=== PATIENT | female | born 1990 | race Hispanic/Latino ===

== ENCOUNTER 2021-11-22 09:02 | Emergency (ER) | payer SELFPAY ==
[2021-11-22 10:37] LABS: #Eosinphils 0.1 10x3/uL (0.0-0.5); #Monocytes 0.7 10x3/uL (0.0-1.1); #Neutrophils 5.6 10x3/uL (1.5-8.4); %Basophils 0.1 % (0.0-2.0); %Eosinophils 1.3 % (0.0-6.0); %Lymphocytes 24.6 % (18.0-47.0); %Monocytes 7.8 % (0.0-10.0); %Neutrophils 65.5 % (40.0-75.0); Hemoglobin 13.9 g/dL (12.0-15.5); Mean Corpuscular HGB CONC 34.6 g/dL (32.0-36.0); Mean Corpuscular Hemoglobin 29.6 pg (27.0-33.0); Mean Corpuscular Volume 85.7 fl (81.6-98.3); Mean Platelet Volume 10.2 fl (7.4-10.4); Platelet Count 270 10x3/uL (150-450); RBC Distribution Width 12.3 % (11.5-14.5); Red Blood Cell (RBC) Count 4.69 10x6/uL (3.90-5.03); White Blood Cell (WBC) Count 8.5 10x3/uL (3.5-10.5)
[2021-11-22 10:44] LABS: BHCG - Serum Negative (NEGATIVE); Pregs Control Bar Appear? YES (CONTROL BAR)
[2021-11-22 10:45] LABS: Pregs Control Background? CLEAR/WHITE (CLR/WHITE)
[2021-11-22 10:52] LABS: ALT (SGPT) 75 U/L (8-55); AST (SGOT) 40 U/L (5-34); Albumin 4.1 g/dL (3.5-5.0); Alkaline Phosphatase 94 U/L (40-110); Anion Gap 12 mmol/L (10-20); BUN (Urea Nitrogen) 9 mg/dL (7.0-18.7); Bilirubin, Total 0.8 mg/dL (0.2-1.2); Calc. Creatinine Clearance 0 mL/min (70-130); Calcium 9.1 mg/dL (7.8-10.44); Carbon Dioxide 26 mmol/L (22-29); Chloride 105 mmol/L (98-107); Globulin 3.7 g/dL (2.4-3.5); Glucose 119 mg/dL (70-105); Lipase 12 U/L (8-78); Potassium 3.8 mmol/L (3.5-5.1); Protein, Total 7.8 g/dL (6.0-8.3); Sodium 139 mmol/L (136-145)
[2021-11-22] MEDS ORDERED: Ketorolac Tromethamine 30 MG/ML VIAL ONE (11:03)
[2021-11-22 11:04] LABS: Bilirubin Neg (Negative); Blood, Urine 25 (Negative); Clarity Cloudy (Clear); Glucose, Urine (Dipstick) Normal (Negative); Ketone, Urine Negative (Negative); Leukocyte 500 (Negative); Nitrite Negative (Negative); Protein, Urine (Dipstick) 30 mg/dl (Neg-Trace); Specific Gravity, Urine 1.015 (1.002-1.036); Urobilinogen Normal mg/dL (Less than 2)
[2021-11-22 11:11] LABS: Bacteria/HPF 1+ HPF (None Seen); WBC/HPF 21-50 HPF (0-3)
[2021-11-22] MEDS ORDERED: Cefepime 2 GM in Sodium Chloride 0.9% 100 ML IVPB SCH (12:00)
[2021-11-22] MEDS ORDERED: cefTRIAXone\\ROCEPHIN 2 GM VIAL ONE (12:04)
== END 2021-11-22 12:14 | disposition home or self-care (01) ==
LOC: CSHERS 09:02
DX: N10 Acute pyelonephritis (principal); I10 Essential (primary) hypertension
CPT/HCPCS: 74176; 80053; 81003; 81015; 83690; 84703; 85025; 87077; 87086; 96374; 96375; J0692; J0696; J1885; J3490

== ENCOUNTER 2023-02-25 20:49 | Emergency (ER) | payer OTHER, SELFPAY ==
[2023-02-25] MEDS ORDERED: Ketorolac Tromethamine 30 MG/ML VIAL ONE ×2 (21:42→21:43)
[2023-02-25] MEDS ORDERED: Amlodipine 5 MG TAB ONE (21:42)
[2023-02-25 22:25] LABS: Pregnancy Test - Urine (BHCG) Negative (Negative); Pregu Control Background? CLEAR/WHITE (CLR/WHITE); Pregu Control Bar Appear? YES (CONTROL BAR)
== END 2023-02-26 00:21 | disposition home or self-care (01) ==
LOC: CSHERS 20:49
DX: S33.5XXA Sprain of ligaments of lumbar spine, initial encounter (principal); S83.91XA Sprain of unspecified site of right knee, initial encounter; S63.501A Unspecified sprain of right wrist, initial encounter; S93.401A Sprain of unspecified ligament of right ankle, initial encounter; S09.90XA Unspecified injury of head, initial encounter; I10 Essential (primary) hypertension; W19.XXXA Unspecified fall, initial encounter
CPT/HCPCS: 72072; 72100; 81025; 96372; J1885

== ENCOUNTER 2023-05-05 12:51 | Emergency (ER) | payer OTHER ==
[2023-05-05] MEDS ORDERED: hydrALAZINE 20 MG/ML VIAL ONE (13:53)
[2023-05-05 14:27] LABS: #Eosinphils 0.1 10x3/uL (0.0-0.5); #Monocytes 0.6 10x3/uL (0.0-1.1); #Neutrophils 4.7 10x3/uL (1.5-8.4); %Basophils 0.3 % (0.0-2.0); %Eosinophils 0.8 % (0.0-6.0); %Lymphocytes 30.8 % (18.0-47.0); %Monocytes 7.4 % (0.0-10.0); %Neutrophils 60.4 % (40.0-75.0); Hemoglobin 14.5 g/dL (12.0-15.5); Mean Corpuscular HGB CONC 34.4 g/dL (32.0-36.0); Mean Corpuscular Hemoglobin 29.1 pg (27.0-33.0); Mean Corpuscular Volume 84.5 fl (81.6-98.3); Mean Platelet Volume 11.2 fl (7.4-10.4); Platelet Count 285 10x3/uL (150-450); RBC Distribution Width 12.4 % (11.5-14.5); Red Blood Cell (RBC) Count 4.98 10x6/uL (3.90-5.03); White Blood Cell (WBC) Count 7.7 10x3/uL (3.5-10.5)
[2023-05-05 14:39] LABS: ALT (SGPT) 60 U/L (8-55); AST (SGOT) 41 U/L (5-34); Albumin 4.3 g/dL (3.5-5.0); Alkaline Phosphatase 97 U/L (40-110); Anion Gap 17 mmol/L (10-20); BUN (Urea Nitrogen) 9 mg/dL (7.0-18.7); Bilirubin, Total 0.7 mg/dL (0.2-1.2); Calc. Creatinine Clearance 0 mL/min (70-130); Calcium 9.1 mg/dL (7.8-10.44); Carbon Dioxide 20 mmol/L (22-29); Chloride 103 mmol/L (98-107); Estimated GFR 109; Globulin 3.8 g/dL (2.4-3.5); Glucose 98 mg/dL (70-105); Potassium 4.3 mmol/L (3.5-5.1); Protein, Total 8.1 g/dL (6.0-8.3); Sodium 136 mmol/L (136-145)
== END 2023-05-05 16:20 | disposition home or self-care (01) ==
LOC: CSHERS 12:51
DX: I10 Essential (primary) hypertension (principal)
CPT/HCPCS: 71045; 80053; 84484; 85025; 93005; 96374; J0360

== ENCOUNTER 2023-12-17 09:07 | Outpatient (CLI) | payer OTHER | END 2023-12-17 09:08 | disposition home or self-care (01) | LOC: CSHULT 09:07 | PROVIDERS: ATTEND Advanced Practice Midwife | DX: N97.9 Female infertility, unspecified (principal) | CPT/HCPCS: 76856 ==